=== PATIENT | male | born 1980 | race African-American/Black ===

== ENCOUNTER 2016-12-04 20:19 | Emergency (ER) | payer BC ==
--- NOTE | 2016-12-04 20:44 | UC ---
HPI Febrile Illness - HPI Summary HPI Summary: 36 YEAR OLD MALE PRESENTS WITH SEVERE CRAMPING. I AM VERY CONCERNED ABOUT RHABDO AND WILL SEND HIM TO THE ER. - History of Current Complaint Chief Complaint: UCGeneralIllness Time Seen by Provider: 12/04/16 20:38 Hx Obtained From: Patient Timing: Constant Initial Severity: Moderate Current Severity: Moderate Pain Scale Used: 0-10 Numeric - 5 Aggravating Factors: Nothing Alleviating Factors: Nothing Associated Signs and Symptoms: Negative - Risk Factors Pseudomonas Risk Factors: Negative - Allergy/Home Medications Allergies/Adverse Reactions: Allergies Allergy/AdvReac Type Severity Reaction Status Date / Time No Known Allergies Allergy Verified 12/04/16 21:43 PMH/Surg Hx/FS Hx/Imm Hx Endocrine/Hematology History: Denies: Hx Diabetes, Hx Thyroid Disease Cardiovascular History: Reports: Hx Hypertension - TAKES MEDICATION Denies: Hx Hypercholesterolemia, Hx Pacemaker/ICD, Hx Peripheral Vascular Disease Respiratory History: Denies: Hx Asthma, Hx Chronic Obstructive Pulmonary Disease (COPD) GI History: Denies: Hx Ulcer Musculoskeletal History: Denies: Hx Arthritis, Hx Rheumatoid Arthritis, Hx Osteoporosis Sensory History: Denies: Hx Cataracts, Hx Contacts or Glasses, Hx Glaucoma, Hx Hearing Aid Opthamlomology History: Denies: Hx Cataracts, Hx Contacts or Glasses, Hx Glaucoma Neurological History: Denies: Hx Headaches, Hx Seizures, Hx Transient Ischemic Attacks (TIA) Psychiatric History: Denies: Hx Anxiety, Hx Depression, Hx Panic Disorder - Surgical History Surgery Procedure, Year, and Place: R ankle operation 1999. Gout Infectious Disease History: No Infectious Disease History: Denies: Hx Hepatitis, Hx Human Immunodeficiency Virus (HIV), History Other Infectious Disease, Traveled Outside the [place] in Last 30 Days - Social History Alcohol Use: None Substance Use Type: Reports: None Smoking Status (MU): Never Smoked Tobacco Review of Systems Constitutional: Negative Skin: Negative Eyes: Negative ENT: Negative Respiratory: Negative Cardiovascular: Negative Gastrointestinal: Negative Genitourinary: Negative Motor: Negative Neurovascular: Negative Musculoskeletal: Myalgia, Other: - MUSCLE CRAMPS Neurological: Negative Psychological: Negative All Other Systems Reviewed And Are Negative: Yes Physical Exam Triage Information Reviewed: Yes Appearance: Well-Appearing Vital Signs: Initial Vital Signs Temp 36.9 C 12/04/16 20:25 Pulse 110 12/04/16 20:25 Resp 18 12/04/16 20:25 BP 128/86 12/04/16 20:25 Pulse Ox 98 12/04/16 20:25 Eye Exam: Normal ENT Exam: Normal Dental Exam: Normal Neck exam: Normal Neck: Positive: 1 Respiratory Exam: Normal Cardiovascular Exam: Normal Abdominal Exam: Normal Neurological Exam: Normal Psychological Exam: Normal Skin Exam: Normal Course/Dx - Diagnoses Clinic Provider Diagnoses: MUSCLE CRAMPING. FATIGUE. CRAMPING Discharge - Discharge Plan Condition: Stable Disposition: HOME Patient Education Materials: Leg Cramps (ED) Referrals: No Primary Care Phys,NOPCP [Medical Doctor] - Additional Instructions: PLEASE GO TO THE ER TO RULE OUT RHABDO.
[2016-12-04 20:48] VITALS: BP 128/86
== END 2016-12-04 21:09 | disposition home or self-care (01) ==
LOC: UCEAST 20:19
DX: R25.2 Cramp and spasm (principal); R53.83 Other fatigue; I10 Essential (primary) hypertension
CPT/HCPCS: 99211; G0463

== ENCOUNTER 2016-12-04 21:19 | Emergency (ER) | payer BC ==
[2016-12-04 22:32] LABS: Hematocrit 51 % (42-52); Hemoglobin 17.1 g/dl (14.0-18.0); Mean Corpuscular HGB Conc 34 g/dl (31-36); Mean Corpuscular Hemoglobin 28 pg (27-31); Mean Corpuscular Volume 83 fL (80-94); Mean Platelet Volume 7 um3 (7.4-10.4); Red Blood Count 6.06 10^6/ul (4.0-5.4); Red Cell Distribution Width 14 % (10.5-15); White Blood Count 8.4 10^3/ul (3.5-10.8)
[2016-12-04 23:00] LABS: Troponin I 0.02 ng/mL (<0.04)
[2016-12-04 23:02] LABS: Albumin 5.4 g/dL (3.2-5.2); BUN/Creatinine Ratio 17.9 (8-20); Calcium 10.9 mg/dL (8.6-10.3); EGFR African American 59.4 (>60); EGFR Non-African American 46.2 (>60); Potassium 4.2 mmol/L (3.5-5.0); Total Bilirubin 0.7 mg/dL (0.2-1.0); Total Protein 8.4 g/dL (6.4-8.9)
[2016-12-04 23:20] VITALS: BP 122/81
== END 2016-12-04 23:27 | disposition left against medical advice (07) ==
LOC: ED 21:19
DX: R25.2 Cramp and spasm (principal); Z53.21 Procedure and treatment not carried out due to patient leaving prior to being seen by health care provider
CPT/HCPCS: 36415; 80053; 83690; 84484; 85025; 85610; 85730

== ENCOUNTER 2018-06-02 01:48 | Observation (INO) | payer BC ==
--- NOTE | 2018-06-02 02:26 | ED ---
HPI Chest Pain - HPI Summary HPI Summary: This patient is a 37 year old M presenting to [facility] with a chief complaint of intermittent chest tightness since the 15:00 on 05/31/18 after climbing a hill and many stairs. It subsided after a few minutes. 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 The patient rates the pain 4/10 in severity. Patient reports feeling this chest tightness when he is sick, but he is not currently sick. - History of Current Complaint Chief Complaint: EDChestPainROMI Hx Obtained From: Patient Onset/Duration: Started Days Ago Timing: Intermittent Initial Severity: Moderate Current Severity: None Pain Intensity: 4 Pain Scale Used: 0-10 Numeric Character: Tightness Associated Signs and Symptoms: Positive: Chest Pain - Allergy/Home Medications Allergies/Adverse Reactions: Allergies Allergy/AdvReac Type Severity Reaction Status Date / Time No Known Allergies Allergy Verified 06/02/18 01:59 Home Medications: Home Medications Olmesartan (NF) 20 mg PO DAILY 06/02/18 [History Confirmed 06/02/18] PMH/Surg Hx/FS Hx/Imm Hx Endocrine/Hematology History: Denies: Hx Diabetes, Hx Thyroid Disease Cardiovascular History: Reports: Hx Hypertension - TAKES MEDICATION Denies: Hx Hypercholesterolemia, Hx Pacemaker/ICD, Hx Peripheral Vascular Disease Respiratory History: Denies: Hx Asthma, Hx Chronic Obstructive Pulmonary Disease (COPD) GI History: Denies: Hx Ulcer Musculoskeletal History: Denies: Hx Arthritis, Hx Rheumatoid Arthritis, Hx Osteoporosis Sensory History: Denies: Hx Cataracts, Hx Contacts or Glasses, Hx Glaucoma, Hx Hearing Aid Opthamlomology History: Denies: Hx Cataracts, Hx Contacts or Glasses, Hx Glaucoma Neurological History: Denies: Hx Headaches, Hx Seizures, Hx Transient Ischemic Attacks (TIA) Psychiatric History: Denies: Hx Anxiety, Hx Depression, Hx Panic Disorder - Surgical History Surgery Procedure, Year, and Place: R ankle operation 1999 Infectious Disease History: No Infectious Disease History: Denies: Hx Hepatitis, Hx Human Immunodeficiency Virus (HIV), History Other Infectious Disease, Traveled Outside the [place] in Last 30 Days - Family History Known Family History: Positive: Unknown - Patient was adopted - Social History Alcohol Use: None Substance Use Type: Reports: None Smoking Status (MU): Never Smoked Tobacco Review of Systems Negative: Fever Positive: Chest Pain - tightness All Other Systems Reviewed And Are Negative: Yes Physical Exam - Summary Physical Exam Summary: Appearance: Well-appearing, Well-nourished, lying in bed comfortably Skin: Warm, dry, no obvious rash Eyes: sclera anicteric, no conjunctival pallor ENT: mucous membranes moist, pharynx appears normal Neck: Supple, nontender Respiratory: Clear to auscultation, no signs of respiratory distress Cardiovascular: Normal S1, S2. No murmurs. Normal distal pulses in tibial and radial bilaterally. Abdomen: Soft, nontender, normal active bowel sounds present Musculoskeletal: Normal, Strength/ROM Intact Neurological: A&Ox3, awake and alert, mentation is normal, speech is fluent and appropriate Psychiatric: affect is normal, does not appear anxious or depressed Triage Information Reviewed: Yes Vital Signs On Initial Exam: Initial Vitals Temp Pulse Resp BP Pulse Ox 97.5 F 73 18 186/125 97 06/02/18 01:58 06/02/18 01:58 06/02/18 01:58 06/02/18 01:58 06/02/18 01:58 Vital Signs Reviewed: Yes Diagnostics - Vital Signs Vital Signs Temp Pulse Resp BP Pulse Ox 06/02/18 02:02 67 14 197/118 98 06/02/18 02:00 71 19 98 06/02/18 01:58 97.5 F 73 18 186/125 97 - Laboratory Result Diagrams: 06/02/18 12:10 06/02/18 11:42 Lab Statement: Any lab studies that have been ordered have been reviewed, and results considered in the medical decision making process. - Radiology Chest X-Ray Radiology Interpretation Completed By: ED Physician Summary of Radiographic Findings: 03:25. No acute process. Pending official report. - EKG 02:18 Cardiac Rate: NL - 70 BPM EKG Rhythm: Sinus Rhythm Summary of EKG Findings: Normal Chest Pain Course/Dx - Course Course Of Treatment: This patient is a 37 year old M presenting to [facility] with a chief complaint of intermittent chest tightness since the 15:00 on 05/31/18 after climbing a hill and many stairs. The EKG and chest x-ray were unremarkable. I spoke with Dr. Worley, hospitalist, who has agreed to admit the patient with a dx of chest pain and hypertensive urgency. - Diagnoses Provider Diagnoses: Chest pain, Hypertensive urgency - Provider Notifications Discussed Care Of Patient With: Linda Worley - Hospitalist Time Discussed With Above Provider: 05:00 Instructed by Provider To: Admit As Inpatient - Critical Care Time Critical Care Time: 30-74 min - Hypertensive urgency in the setting of ACS requiring IV anti hypertensive treatment Discharge - Sign-Out/Discharge Documenting (check all that apply): Patient Departure - Admit Patient Received Moderate/Deep Sedation with Procedure: No - Discharge Plan Condition: Good Disposition: ADMITTED TO [facility] - Billing Disposition and Condition Condition: GOOD Disposition: Admitted to [facility] - Attestation Statements Document Initiated by Angelicae: Yes Documenting Scribe: Omar Huynh Provider For Whom Kenrick is Documenting (Include Credential): Yobany Milligan MD Scribsophia Attestation: Omar Jaime, scribed for Yobany Milligan MD on 06/03/18 at 0449. Scribe Documentation Reviewed: Yes Provider Attestation: The documentation as recorded by the Omar melgar accurately reflects the service I personally performed and the decisions made by , Yobany Milligan MD Status of Scribe Document: Viewed
[2018-06-02] MEDS ORDERED: Aspirin 81 mg CHEW TAB* 81 MG TAB.CHEW PO ONE (02:34)
[2018-06-02] MEDS ORDERED: Labetalol IV* 5 MG/ML 20 ML VIAL IV PUSH ONE (02:34)
[2018-06-02] MEDS ORDERED: hydrALAZINE IV* 20 MG/ML VIAL IV SLOW PU ONE (02:42)
[2018-06-02 02:54] LABS: ABS Basophils 0.1 10^3/ul (0-0.2); ABS Eosinophils 0.1 10^3/ul (0-0.6); ABS Lymphocytes 1.9 10^3/ul (1.0-4.8); ABS Monocytes 0.5 10^3/ul (0-0.8); ABS Neutrophils 2.3 10^3/ul (1.5-7.7); ABS Nucleated RBC 0 10^3/ul; Eosinophil % 2.6 %; Hematocrit 46 % (42-52); Hemoglobin 15.7 g/dl (14.0-18.0); Lymphocyte % 39.2 %; Mean Corpuscular HGB Conc 34 g/dl (31-36); Mean Corpuscular Hemoglobin 29 pg (27-31); Mean Corpuscular Volume 84 fL (80-94); Mean Platelet Volume 7.1 fL (7.4-10.4); Nucleated Red Blood Cells % 0.1; Platelet Count 266 10^3/ul (150-450); Red Blood Count 5.47 10^6/ul (4.00-5.40); Red Cell Distribution Width 13 % (10.5-15)
[2018-06-02 03:08] LABS: Albumin 4.7 g/dL (3.2-5.2); Albumin/Globulin Ratio 1.9 (1-3); BUN/Creatinine Ratio 15.9 (8-20); EGFR African American 87.9 (>60); EGFR Non-African American 72.6 (>60); Globulin 2.5 g/dL (2-4); Potassium 3.7 mmol/L (3.5-5.0); Total Bilirubin 0.4 mg/dL (0.2-1.0); Total Protein 7.2 g/dL (6.4-8.9)
[2018-06-02 03:16] LABS: Troponin I 0.07 ng/mL (<0.04)
[2018-06-02] MEDS ORDERED: hydrALAZINE IV* 20 MG/ML VIAL IV SLOW PU PRN (05:26)
[2018-06-02] MEDS: Losartan TAB* 25 MG PO SCH ×3 (06:12→08:00)
[2018-06-02 09:13] LABS: CKMB ng/mL 4.5 ng/mL (0.6-6.3)
--- NOTE | 2018-06-02 09:41 | ECHO ---
Patient: LLOYD BRUNNER [facility] Rec#: [id number] : 1980 Date: 06/02/2018 Age: 37y Height: 178 cm / 70.1 in Weight: 117 kg / 257.9 lbs Sex: M BSA: 2.33 Room#: [facility] Admit Date#: 06/02/2018 Type: Inpatient Referring: Nisha Steiner MD Reading: Jose Zuleta MD Butadiene Convertor Operator: Inna Ware RDCS,RDMS CC: Gato Vanegas MD Transthoracic Echocardiogram Indication: CP BP: 151/115 HR: 66 Rhythm: NSR Findings History: HTN Technical Comments: The study quality is good. Left Ventricle: The left ventricular chamber size is normal. Mild concentric left ventricular hypertrophy is observed. Basal interventricular septum shows moderate thickening. The estimated ejection fraction is 55-60%. There is an E to A reversal in the mitral valve flow pattern suggestive of diastolic dysfunction. Left Atrium: The left atrium is mildly dilated. Right Ventricle: The right ventricular chamber size and systolic function are within normal limits. Right Atrium: The right atrial cavity size is normal. Aortic Valve: The aortic valve is trileaflet. Systolic excursion of the aortic valve is normal. There is a trace of aortic regurgitation. There is no evidence of aortic stenosis. Mitral Valve: The mitral valve leaflets appear normal. There is a trace of mitral regurgitation. There is no evidence of mitral stenosis. Tricuspid Valve: The tricuspid valve leaflets are normal. There is trace tricuspid regurgitation. Unable to estimate the right ventricular systolic pressure. Pulmonic Valve: The pulmonic valve appears normal. There is a trace pulmonic regurgitation. Pericardium: There is no significant pericardial effusion. Aorta: The aortic root appears normal. There is no dilatation of the aortic arch. Pulmonary Artery: The main pulmonary artery appears normal. Venous: The inferior vena cava is not visualized. Summary: There was not any prior study for comparison. Conclusions The left ventricular chamber size is normal. Mild concentric left ventricular hypertrophy is observed. The estimated ejection fraction is 55-60%. There is an E to A reversal in the mitral valve flow pattern suggestive of diastolic dysfunction. The left atrium is mildly dilated. There is a trace of aortic regurgitation. There is a trace of mitral regurgitation. There is trace tricuspid regurgitation. There is a trace pulmonic regurgitation. Measurements Name Value Normal Range RVIDd (AP) 2D 3.6 cm (0.9 - 2.6) RVDdMajor (2D) 3.2 cm (2.2 - 4.4) RAd ISD 4CH 4.1 cm (3.4 - 4.9) RA (A4C)W 3.6 cm (2.9 - 4.6) IVSd (2D) 1.5 cm (0.6 - 1) LVPWd (2D) 1.1 cm (0.6 - 1) LVIDd (2D) 4.3 cm (3.6 - 5.4) LVIDs (2D) 2.9 cm - LV FS (2D) 32 % (25 - 45) Aortic Annulus 2.5 cm (1.4 - 2.6) Ao root diameter (2D) 3.5 cm (2.1 - 3.5) Ascending Ao 3.4 cm (2.1 - 3.4) Aortic arch 3.3 cm (1.8 - 3.4) LA dimension (AP) 2D 5.1 cm (2.3 - 3.8) LAd ISD 4CH 5.6 cm (2.9 - 5.3) LA ISD 4CH W 4.5 cm (2.5 - 4.5) Name Value Normal Range LA ESV BP (A/L) index 31 ml/m2 - Name Value Normal Range MV E-wave Vmax 0.5 m/sec - MV deceleration time 164 msec - MV A-wave Vmax 0.6 m/sec - MV E:A ratio 0.8 ratio - LV septal e' Vmax 0.06 m/sec - LV lateral e' Vmax 0.06 m/sec - LV E:e' septal ratio 9 ratio - LV E:e' lateral ratio 9 ratio - Name Value Normal Range AV Vmax 1 m/sec - AV VTI 21 cm - AV peak gradient 4 mmHg - AV mean gradient 2 mmHg - LVOT Vmax 0.9 m/sec - LVOT VTI 19 cm - LVOT peak gradient 3.2 mmHg - LVOT mean gradient 2 mmHg - YOKASTA Vmax 0.7 m/sec - Name Value Normal Range RAP 8 mmHg - Name Value Normal Range PV Vmax 0.7 m/sec - PV peak gradient 2 mmHg -
--- NOTE | 2018-06-02 10:44 | HP ---
HISTORY AND PHYSICAL: DATE OF ADMISSION: 06/02/18 CHIEF COMPLAINT: Chest pain. PRIMARY CARE PROVIDER: Gato Vanegas MD. VEGETABLE THINNER: Jordyn Herrera, his . CODE STATUS: Full. SOURCE OF INFORMATION: History is obtained from review of medical charts and patient, who is an excellent historian. HISTORY OF PRESENT ILLNESS: This is a 37-year-old man with past medical history of hypertension and BMI of 35 who presented to the emergency room with complaint of chest pain over the course of 48 hours. Patient reports intermittent chest tightness described as "I felt as if the weight of my body was standing on my chest." That began at 3 p.m. on 05/31/18. It started when he was heading into work and climbing stairs and reports at the top of the stairs he had a sensation of intense chest pressure. This pressure did not radiate. He had no sweating, no nausea or diaphoresis associated with it. He was able to rest for several minutes and the chest pain subsided and he went about his day. On 06/01/18, the patient again had a brief sensation of chest tightness. This again was at a time where he was exerting himself. It passed on its own after a couple of minutes, although this morning 06/02/18, this sensation of chest tightness awoke him from sleep and he decided to present to the emergency room. He has had this sensation of chest tightness, not as intense, before during episodes of upper respiratory infections, though he has no other symptoms of upper respiratory infection at this time. He denies any palpitation. Denies progressive dyspnea on exertion or orthopnea. No other fatigue or malaise. No nausea and no edema. Of note, patient has a history of poorly controlled blood pressure. He used to be on 2 h.s. blood pressure regimen, although was lowered to 1-agent blood pressure regimen several months ago. He self-discontinued his blood pressure medication in January, although resumed it when his blood pressure became out of control. He has been tested for sleep apnea and he denies that he has it. Emergency room course, patient arrived with vital signs of blood pressure 186/125, heart rate 73, temperature 97.5, satting 97% on room air. EKG was done that showed normal sinus rhythm. Patient had chest x-ray that showed no active cardio-pulmonary disease. Labs were done which showed unremarkable CBC, negative D-dimer, BMP that was normal, and troponin that was elevated at 0.07. The hospitalist team is asked to evaluate this patient for rule out ACS versus hypertensive urgency. He did receive labetalol, hydralazine , and aspirin in the emergency room. PAST MEDICAL HISTORY: Significant for hypertension. PAST SURGICAL HISTORY: Tonsillectomy and reconstructive ankle surgery. FAMILY HISTORY: Unknown as patient is adopted. 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 He is a nonsmoker, a social drinker. No history of illicit substance use. He lives with his . MEDICATIONS: Olmesartan 20 mg p.o. daily. ALLERGIES: No known drug allergy. REVIEW OF SYSTEMS: Constitutional: Negative for fever, chills, or malaise. HEENT: Negative for headaches, vision changes, or dysphagia. Cardiovascular: Positive for chest pressure and tightness. Denies palpitations or orthopnea. Respiratory: Denies shortness of breath, cough, or pleuritic chest pain. GI: Denies nausea, vomiting, diarrhea, or abdominal pain. : Denies dysuria or hematuria. Musculoskeletal: Denies myalgias or arthralgias. Skin: Denies skin changes. Neuro: Denies focal weakness or numbness. Psychiatric: Denies depression or anxiety. PHYSICAL EXAMINATION General: Patient is a very pleasant well-appearing man, in no acute distress, sitting up in bed with his at his bedside. VITAL SIGNS: At time of my physical exam, patient's blood pressure is 160/90, heart rate 70, afebrile, respiratory rate 12, satting 99% on room air. HEENT: Patient is normocephalic, atraumatic with pupils equal and reactive. Sclerae anicteric. Oropharynx clear with moist mucous membranes. NECK: Supple with no cervical lymphadenopathy. RESPIRATORY: Clear to auscultation bilaterally. CARDIAC: Regular rate and rhythm with no murmurs, rubs, or gallops. ABDOMEN: Soft, nontender, nondistended. Normoactive bowel sounds with no hepatosplenomegaly. MUSCULOSKELETAL: He has full range of motion in all 4 extremities. He has no edema in bilateral lower extremities. NEURO: He is A and O x3 with no focal deficits and cranial nerves II through XII intact. SKIN: No rashes or lesions. DIAGNOSTIC STUDIES/LAB DATA: Data collected shows a CBC that has white blood cell count of 5, hemoglobin of 15.7, hematocrit of 46, platelets of 266. BMP was drawn that showed sodium of 140, potassium 3.7, chloride 105, carbon dioxide 28, BUN 18, creatinine 1.1, glucose 105, calcium 10. AST 31, ALT 37, alkaline phosphatase 68. Troponin elevated at 0.07 and D-dimer is negative. EKG showed normal sinus rhythm. Chest x-ray shows no active cardiopulmonary disease. Films and EKG are reviewed by myself. ASSESSMENT AND PLAN: This is a 37-year-old male with past medical history of hypertension who presented to the emergency room with 48 hours of intermittent chest pressure, found to have hypertensive urgency and elevated troponin, concerning for unstable angina versus hypertensive emergency. 1. Chest pain. He does have mildly elevated troponin on admission without EKG changes. As above, concerning for hypertensive emergency versus unstable angina. We will admit to tele service and trend trops q.3 hours. We will order an exercise stress test for tomorrow and consult Cardiology. Also, patient is status post aspirin and blood pressure control in the emergency room. We will hold on beta blockers given undergoing possible exercise stress test. 2. Hypertensive urgency, status post labetalol and hydralazine in the emergency room. We will start losartan at his equivalent home dose. We will order for p.r.n. hydralazine pushes for a systolic blood pressure greater than 160. Of note, patient may need additional oral agents as he required 2 in the past. 3. DVT prophylaxis. Patient is ambulatory and is low risk. 4. Diet. N.p.o. right now for possible stress test. 5. Code status is full. 6. Disposition. Stable for observation to telemetry floor with rule out chest pain. Plan of care is discussed with patient and his and they are agreeable to this plan. He will be admitted to observation to the tele floor. TIME SPENT: Thirty minutes were spent in the execution of this admission and H and P, with over half of that spent at the bedside giving direct patient care. PCP will be notified during this admission. [id number]/[facility] #: [id number] TERRENCE
[2018-06-02] MEDS: Hydrochlorothiazide TAB* 25 MG PO SCH (11:31)
[2018-06-02 11:49] LABS: HDL Cholesterol 41.6 mg/dL
[2018-06-02] MEDS ORDERED: Atorvastatin* 80 MG TAB PO ONE (11:52)
[2018-06-02] MEDS: Metoprolol Tartrate TAB* 25 MG PO SCH ×2 (12:19→17:58)
[2018-06-02] MEDS ORDERED: Heparin VIAL(*) 5000 UNITS/ML VIAL (FIVE THOUSAND) ONE ×2 (12:20→19:04)
[2018-06-02 12:22] LABS: EGFR African American 106.1 (>60); EGFR Non-African American 87.7 (>60)
[2018-06-02 12:27] LABS: Troponin I 0.27 ng/mL (<0.04)
[2018-06-02] MEDS: Heparin DRIP 25,000 UNITS(*) 25,000 UNITS/500 ML BAG IV SCH (12:31)
[2018-06-02 12:41] LABS: ABS Basophils 0 10^3/ul (0-0.2); ABS Eosinophils 0 10^3/ul (0-0.6); ABS Lymphocytes 1.4 10^3/ul (1.0-4.8); ABS Monocytes 0.3 10^3/ul (0-0.8); ABS Neutrophils 3.3 10^3/ul (1.5-7.7); ABS Nucleated RBC 0 10^3/ul; Eosinophil % 0.5 %; Hematocrit 47 % (42-52); Hemoglobin 16.3 g/dl (14.0-18.0); Lymphocyte % 27.7 %; Mean Corpuscular HGB Conc 35 g/dl (31-36); Mean Corpuscular Hemoglobin 29 pg (27-31); Mean Corpuscular Volume 83 fL (80-94); Mean Platelet Volume 7.2 fL (7.4-10.4); Nucleated Red Blood Cells % 0.3; Platelet Count 272 10^3/ul (150-450); Red Cell Distribution Width 13 % (10.5-15)
--- NOTE | 2018-06-02 13:30 | CONS ---
CONSULTATION REPORT: DATE OF CONSULT: 06/02/18 ATTENDING PHYSICIAN: Dr. Zuleta, Cardiology. REASON FOR CONSULT: Troponin elevation, hypertension. PRIMARY CARE PHYSICIAN: Dr. Vanegas with [facility]. PRIMARY ULTRASOUND SUPERVISOR: None. CHIEF COMPLAINT: Chest pain. HISTORY OF PRESENT ILLNESS: This is a pleasant 37-year-old male patient with a known medical history involving hypertension who has been on Benicar in the past since he was diagnosed at the age of 27. The patient states he was in September and shortly afterwards decided to do a trial off of hypertension medication (Benicar 20 mg a day). The patient did not monitor blood pressure during this time that he stopped Benicar. Apparently, in mid January when he [facility], he started to develop headaches which he historically would manifest with uncontrolled hypertension. He saw his PCP and restarted Benicar 20 mg a day. Blood pressure systolic in January was 180 at the PCP's office. 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 Apparently, his who is a labor and delivery nurse here at [facility] had enquired about obtaining an adequate blood pressure cuff size from the primary care provider. However, they stated that they were unable to prescribe this medical equipment. The patient saw the nurse practitioner with Dr. Vanegas last Friday and his blood pressure systolic was apparently in the 130s. There were no medication changes reported by the patient. He otherwise has been in his usual state of health. He is very active. 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 Apparently, he works out 1 to 1-1/2 hours a day doing surrogate training involving high intensity interval training in addition to lifting weights. He denies ever developing exertional chest pain or tightness, dizziness, or syncope. Apparently, this past Friday in [place], his lacrosse team was at the [facility]. He had to walk from the bottom of the hill and up 2 flights. During this time period, he did develop chest discomfort described as heaviness that started at the base of his neck and radiating down his sternum with associated dyspnea. No associated diaphoresis, palpitation, sensation of heart raising, dizziness, or syncope. Apparently, episode lasted 5 minutes and resolved. He was able to conduct his videography for the team for the next 2 hours with only slight chest discomfort reoccurring intermittently. He drove himself home and around 8:30 p.m. on Friday evening, he developed chest discomfort, this time described as tightness. The patient states he took two antacids and started to belch and pain resolved. Pain was not related to inspiration, palpation, or movement or walking. He woke up on Friday at 4 a.m. and went through his usual day at work. He states at the school he will go up a flight or two of stairs. He denies any exertional symptoms while at school. Yesterday evening, he had a 3-hour long lacrosse practice where he was warming up the goalie and shooting balls and was physically active with no complaints of chest pain. Apparently, last evening though while resting, he developed chest discomfort described as a pressure that was more intense than the former episodes. He called his who was doing an overnight shift in our Labor and Delivery Department, who recommended that he present to [facility]. Apparently en route to our hospital, symptoms resolved and then symptoms restarted. He did have chest pain when he presented to the hospital; however, after he was given labetalol therapy, pain resolved with no reoccurrence. Blood pressure in the emergency department was 187/118. He was admitted to [address] [place] [address] for hypertensive urgency. Losartan 50 mg a day was initiated in addition to hydralazine 5 mg q.6 h. The patient denies any reoccurrence of chest pain. Blood work was obtained. Troponin was elevated at 0.21, thus we were asked to see the patient in consultation. EKG revealed nonspecific ST changes in anterolateral leads. No ST segment elevation. This morning, his EKG demonstrated borderline T- wave abnormalities in V1, V3. Again, the patient has been asymptomatic since yesterday in the emergency department. Last ischemic evaluation: None. PAST MEDICAL HISTORY: Includes hypertension diagnosed at the age of 27. PAST SURGICAL HISTORY: Includes biopsy of left lower extremity in 2006 in addition to ankle surgery in 1999. HOME MEDICATIONS: Include: 1. Benicar 20 mg a day. 2. He was on HCTZ in 2017 and his blood pressure at that time was controlled based on review of an urgent care visit, it was 128/86; however, the patient stopped HCTZ therapy due to increased urination. ALLERGIES: No known drug allergies. FAMILY HISTORY: Unknown. The patient is adopted. SOCIAL HISTORY: The patient is . 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 He never smoked tobacco products. Denies consuming alcohol products. He denies illegal drug use. He is very active. He exercises 1 to 1.5 hours a day, doing high- intensity interval training in addition to working out with his lacrosse team. REVIEW OF SYSTEMS: All systems have been reviewed and otherwise negative except as mentioned in the HPI. PHYSICAL EXAM: Temperature is 97.9, pulse 62, respirations 16, oxygenation 100 % on room air, and blood pressure 151/115. General: The patient is alert and oriented upon entering the room, resting in bed comfortably, offers no complaints. Just came back from getting his echocardiogram completed. HEENT: Head is atraumatic and normocephalic. Oral mucosa is moist, tongue is midline. Neck: Supple. Trachea midline. No JVD, no carotid bruits. Cardiac: Normal S1 and S2. Regular rate and rhythm. No murmur, rub, or gallop noted. Lungs are auscultated posteriorly. No evidence of adventitious breath sounds. Respirations nonlabored at the rate of 16. /GI: Abdomen is protuberant and nontender. Normoactive bowel sounds x4. Extremities: No pedal edema, no clubbing, no cyanosis. Peripheral Vascular: 2+ brachial and dorsalis pedis pulse palpated bilaterally and symmetrically. Skin: Intact. No evidence of jaundice, rashes, or ecchymosis. DIAGNOSTIC STUDIES/LAB DATA: Blood Work: White count 5, hemoglobin 15.7, hematocrit 46, platelets 266, D-dimer less than 200. Sodium 140, potassium 3.7 , chloride 105, carbon dioxide 28, BUN 18, creatinine 1.1, glucose 105, troponin 0.25 at 0800. CK-MB 4.5, total CK 304. Echocardiogram 06/02/18 demonstrated LVEF of 55% to 60%. Mild LVH with moderate thickening involving the basal intraventricular septum. There is an E/A reversal in the mitral valve flow pattern suggestive of diastolic dysfunction. Mild dilatation involving the right atrium. Trace aortic insufficiency. No aortic stenosis. Trace mitral regurgitation. Trace tricuspid regurgitation. Aortic root 3.5 cm , ascending aorta 3.4 cm. Chest x-ray, 06/02/18, did not demonstrate active cardiopulmonary disease. EKG: As mentioned above in HPI. ASSESSMENT AND PLAN: 1. Hypertensive urgency. Blood pressure was 197/118 with associated complaints of chest pain. No reoccurrence of symptoms since the emergency department. Continue losartan 100 mg a day, HCTZ 25 mg a day, and hydralazine p.r.n. hospitalist following. 2. Troponinemia. Troponin 0.25 this morning. No reoccurrence of symptoms since the patient was in the emergency department. We will cycle enzymes until troponin peaks. We will risk stratify patient with exercise nuclear stress test , 06/03/18. The patient had nonspecific EKG changes which could be related to hypertensive urgency. 3. Diastolic dysfunction as demonstrated on today's echocardiogram. Recommend aggressive blood pressure control. The patient is compensated on physical examination. 4. Disposition. Pending course. The patient is full code. Dr. Zuleta agrees with the above assessment and plan. KAVIN FOWLER NP [id number]/[facility] #: [id number] TERRENCE
[2018-06-02] MEDS: Acetaminophen TAB* 325 MG PO PRN ×2 (13:54→22:08)
[2018-06-02] MEDS ORDERED: nitroGLYCERIN DRIP* 25,000 MCG/250 ML BTL IV SCH (14:00)
--- NOTE | 2018-06-02 14:30 | PN ---
Subjective Date of Service: 06/02/18 Interval History: HOSPITALIST PROGRESS NOTE Patient seen and examined at bedside. Care reviewed and d/w Gail Royal RN. He feels a little better today. Chest pain is resolved, complaints of mild diffuse STYLES. Family History: Unchanged from Admission Social History: Unchanged from Admission Past Medical History: Unchanged from Admission Objective Active Medications: Acetaminophen (Tylenol Tab*) 650 mg PO Q6H PRN PRN Reason: Pain or fever Last Admin: 06/02/18 13:54 Dose: 650 mg Aspirin (Aspirin Ec Tab*) 81 mg PO DAILY [facility] Atorvastatin Calcium (Lipitor*) 80 mg PO 1700 [facility] Hydralazine HCl (Apresoline Iv*) 5 mg IV SLOW PU Q6H PRN PRN Reason: SYSTOLIC BP GREATER THAN:160 Last Admin: 06/02/18 09:50 Dose: 5 mg Hydrochlorothiazide (Hydrodiuril Tab*) 25 mg PO DAILY [facility] Last Admin: 06/02/18 11:31 Dose: 25 mg Heparin Sodium/Dextrose (Heparin Drip 25,000 Units(*)) 25,000 units in 500 mls @ 0 mls/hr IV PER RATE [facility]; Protocol Last Admin: 06/02/18 12:31 Dose: 20 mls/hr Nitroglycerin/Dextrose (Nitroglycerin Drip*) 25,000 mcg in 250 mls @ 6 mls/hr IV .(Initial Rate) [facility]; Protocol Losartan Potassium (Cozaar Tab*) 100 mg PO DAILY [facility] Metoprolol Tartrate (Lopressor Tab*) 25 mg PO 1200,1700 [facility] Stop: 06/02/18 17:01 Last Admin: 06/02/18 12:19 Dose: 25 mg Vital Signs - 8 hr 06/02/18 06/02/18 06/02/18 06:32 06:46 07:36 Temperature 97.9 F 98.0 F Pulse Rate 74 62 72 Respiratory 14 16 20 Rate Blood Pressure 151/102 151/115 154/105 (mmHg) O2 Sat by Pulse 99 100 99 Oximetry 06/02/18 06/02/18 06/02/18 09:38 11:13 13:48 Temperature 97.9 F Pulse Rate 84 Respiratory 16 Rate Blood Pressure 171/114 175/109 168/109 (mmHg) O2 Sat by Pulse 100 Oximetry Oxygen Devices in Use Now: None Appearance: Young obese gentleman lying in bed in NAD. Eyes: No Scleral Icterus, PERRLA Ears/Nose/Mouth/Throat: Mucous Membranes Moist Neck: Trachea Midline Respiratory: Symmetrical Chest Expansion and Respiratory Effort, Clear to Auscultation Cardiovascular: NL Sounds; No Murmurs; No JVD, RRR Abdominal: NL Sounds; No Tenderness; No Distention Extremities: No Edema Neurological: Alert and Oriented x 3, NL Sensation, NL Muscle Strength and Tone Result Diagrams: 06/02/18 12:10 06/02/18 11:42 Assess/Plan/Problems-Billing Assessment: Mr Herrera is a 37yo M with PMH of obesity with BMI 37, HTN, who presented to ED with c/o exertional chest pain, found to have hypertensive urgency and troponin elevation with EKG changes concerning for ACS. - Patient Problems (1) Hypertensive urgency Comment: - Patient has long standing h/o HTN diagnosed at age 27. States his BP was well controlled and summer last year he weaned himself off of meds. Was seen by PCP and medications resumed - wi ll get more records from [place]. - Has received Losartan, HCTZ, Metoprolol, Hydralazine IV, but BP still uncontrolled. Dw Cardiology (Dr Zuleta) - will transfer to ICU for nitro drip. Goal BP<=140/90. (2) Elevated troponin Comment: - Had chest pain on presentation with reversible EKG changes (ST depression and T inversion V3-4, now resolved). - Chest pain free now, but troponin continues to trend up. - Stress test done at [place] in 2016 was negative. Tentative plan for stress test in AM depending on his clinical course. - Continue Aspirin, Metoprolol (hold it tonight for possible ST in AM), Atorvastatin, Heparin drip. - Echo showed EF 55-60%, no wall motion abnormalities. - Chest pain, EKG changes, mild troponinemia may be secondary to hypertensive urgency. - Continue to monitor. (3) DVT prophylaxis Comment: - Heparin drip. (4) Full code status Status and Disposition: Change to inpatient. Transfer to ICU for nitro drip.
[2018-06-02] MEDS ORDERED: nitroGLYCERIN DRIP* 25,000 MCG/250 ML BTL ONE (15:09)
[2018-06-02] MEDS ORDERED: Morphine VIAL* 4 MG/ML VIAL (1 ml vial) IV PRN (15:40)
[2018-06-02] MEDS ORDERED: oxyCODONE TAB* 5 MG TAB PO PRN (19:02)
[2018-06-02] MEDS ORDERED: Ondansetron INJ* 2 MG/ML VIAL ONE (19:28)
[2018-06-02] MEDS ORDERED: Ondansetron INJ* 2 MG/ML VIAL IV PRN (19:36)
[2018-06-02] MEDS ORDERED: diPHENhydraMINE PO* 50 MG PO PRN (22:13)
[2018-06-03] MEDS: Acetaminophen TAB* 325 MG PO PRN ×2 (07:32→16:02)
[2018-06-03 07:38] LABS: ABS Basophils 0 10^3/ul (0-0.2); ABS Eosinophils 0.1 10^3/ul (0-0.6); ABS Monocytes 0.4 10^3/ul (0-0.8); ABS Nucleated RBC 0 10^3/ul; Hematocrit 48 % (42-52); Hemoglobin 16.2 g/dl (14.0-18.0); Lymphocyte % 30.7 %; Mean Corpuscular HGB Conc 34 g/dl (31-36); Mean Corpuscular Hemoglobin 28 pg (27-31); Mean Corpuscular Volume 84 fL (80-94); Nucleated Red Blood Cells % 0.1; Platelet Count 268 10^3/ul (150-450); Red Blood Count 5.73 10^6/ul (4.00-5.40); Red Cell Distribution Width 14 % (10.5-15); White Blood Count 6.4 10^3/ul (3.5-10.8)
--- NOTE | 2018-06-03 07:54 | PN ---
Subjective Date of Service: 06/03/18 Interval History: Pt is feeling well. He developed a headache last night which is now mostly resolved after the NTG drip was stopped. He denies any CP/tightness. No SOB. He has not ambulated much to see if he develops any pain with exertion. Family History: Unchanged from Admission Social History: Unchanged from Admission Past Medical History: Unchanged from Admission Objective Active Medications: Acetaminophen (Tylenol Tab*) 650 mg PO Q6H PRN PRN Reason: Pain or fever Last Admin: 06/03/18 07:32 Dose: 650 mg Aspirin (Aspirin Ec Tab*) 81 mg PO DAILY [facility] Atorvastatin Calcium (Lipitor*) 80 mg PO 1700 [facility] Diphenhydramine HCl (Benadryl Po*) 50 mg PO BEDTIME PRN PRN Reason: INSOMNIA Hydralazine HCl (Apresoline Iv*) 5 mg IV SLOW PU Q6H PRN PRN Reason: SYSTOLIC BP GREATER THAN:160 Last Admin: 06/02/18 09:50 Dose: 5 mg Hydrochlorothiazide (Hydrodiuril Tab*) 25 mg PO DAILY [facility] Last Admin: 06/02/18 11:31 Dose: 25 mg Heparin Sodium/Dextrose (Heparin Drip 25,000 Units(*)) 25,000 units in 500 mls @ 0 mls/hr IV PER RATE [facility]; Protocol Last Admin: 06/02/18 12:31 Dose: 20 mls/hr Nitroglycerin/Dextrose (Nitroglycerin Drip*) 25,000 mcg in 250 mls @ 6 mls/hr IV .(Initial Rate) [facility]; Protocol Last Admin: 06/02/18 15:13 Dose: 6 mls/hr Losartan Potassium (Cozaar Tab*) 100 mg PO DAILY [facility] Morphine Sulfate (Morphine Vial*) 1 mg IV Q1H PRN PRN Reason: SEVERE PAIN Ondansetron HCl (Zofran Inj*) 4 mg IV Q6H PRN PRN Reason: NAUSEA Oxycodone HCl (Roxycodone Tab*) 5 mg PO Q4H PRN PRN Reason: PAIN - SEVERE Last Admin: 06/02/18 19:27 Dose: 5 mg Vital Signs - 8 hr 06/03/18 06/03/18 06/03/18 00:00 00:15 00:30 Temperature 97 F Pulse Rate 56 52 55 Respiratory 17 13 16 Rate Blood Pressure 128/79 131/68 122/78 (mmHg) O2 Sat by Pulse 97 96 95 Oximetry 06/03/18 06/03/18 06/03/18 00:45 01:00 01:01 Temperature Pulse Rate 60 69 66 Respiratory 15 18 16 Rate Blood Pressure 119/78 122/84 (mmHg) O2 Sat by Pulse 94 94 95 Oximetry 06/03/18 06/03/18 06/03/18 01:15 01:30 01:45 Temperature Pulse Rate 60 65 61 Respiratory 14 16 14 Rate Blood Pressure 116/88 123/73 138/89 (mmHg) O2 Sat by Pulse 94 97 95 Oximetry 06/03/18 06/03/18 06/03/18 02:00 03:00 04:00 Temperature Pulse Rate 57 63 55 Respiratory 17 15 19 Rate Blood Pressure 118/85 116/86 97/58 (mmHg) O2 Sat by Pulse 94 94 95 Oximetry 06/03/18 06/03/18 06/03/18 05:00 06:00 07:00 Temperature Pulse Rate 57 58 79 Respiratory 17 15 19 Rate Blood Pressure 106/66 113/77 126/84 (mmHg) O2 Sat by Pulse 95 93 97 Oximetry Oxygen Devices in Use Now: None Appearance: Young male sitting up in a chair, NAD Eyes: No Scleral Icterus Ears/Nose/Mouth/Throat: Mucous Membranes Moist Respiratory: Symmetrical Chest Expansion and Respiratory Effort, Clear to Auscultation Cardiovascular: NL Sounds; No Murmurs; No JVD, RRR, No Edema Abdominal: NL Sounds; No Tenderness; No Distention Extremities: No Clubbing, Cyanosis Skin: No Nodules or Sclerosis Neurological: Alert and Oriented x 3 Result Diagrams: 06/03/18 07:26 06/02/18 11:42 Assess/Plan/Problems-Billing Mr Herrera is a 37yo M with PMHx of obesity with BMI 37 and HTN, who presented to ED with c/o exertional chest pain, found to have hypertensive urgency and troponin elevation with EKG changes concerning for ACS. - Patient Problems (1) Elevated troponin Current Visit: Yes Status: Acute Code(s): R74.8 - ABNORMAL LEVELS OF OTHER SERUM ENZYMES SNOMED Code(s): 050350601 Comment: The patient presented because of CP/tightness and was found to have reversible EKG changes. THought to be secondary to hypertensive emergency but will pursue stress test this AM to assess for underlying CAD. Will continue ASA , lipitor and heparin drip for now. Await results of stress test but if negative may be able to go home with close follow up. (2) Hypertensive urgency Current Visit: Yes Status: Acute Code(s): I16.0 - HYPERTENSIVE URGENCY SNOMED Code(s): 768914945 Comment: The patient's BP has normalized with the readdition of HCTZ, he is off NTG drip. He will continue on this and losartan 100mg daily for now (he takes olmesartan 20mg daily which is equivalent). Will keep prn hydralazine available if his BP spikes. (3) DVT prophylaxis Current Visit: Yes Status: Acute Code(s): GCN0374 - SNOMED Code(s): 134867523 Comment: Heparin drip. (4) Full code status Current Visit: Yes Status: Acute Code(s): Z78.9 - OTHER SPECIFIED HEALTH STATUS SNOMED Code(s): 222105353 Status and Disposition: .
[2018-06-03 08:01] LABS: Blood Urea Nitrogen 17 mg/dL (6-24); CO2 Carbon Dioxide 23 mmol/L (22-32); Calcium 9.9 mg/dL (8.6-10.3); Chloride 100 mmol/L (101-111); EGFR African American 101.2 (>60); EGFR Non-African American 83.6 (>60); Glucose 107 mg/dL (70-100); Sodium 134 mmol/L (135-145)
[2018-06-03 08:32] LABS: Anion Gap 11 mmol/L (2-11)
[2018-06-03] MEDS ORDERED: Losartan TAB* 25 MG PO SCH (09:00)
[2018-06-03] MEDS ORDERED: Aspirin EC TAB* 81 MG TAB.EC PO SCH (09:00)
[2018-06-03] MEDS: Hydrochlorothiazide TAB* 25 MG PO SCH (09:07)
[2018-06-03] MEDS ORDERED: Diazepam TAB(*) 5 MG PO PRN (10:11)
[2018-06-03] MEDS ORDERED: diPHENhydraMINE PO* 25 MG PO PRN (10:11)
[2018-06-03] MEDS ORDERED: NS 0.9% 1000 ML** 1,000 ML IV SCH (10:15)
--- NOTE | 2018-06-03 10:48 | PN ---
<SamilorettaCher - Last Filed: 06/03/18 10:42> Subjective Date of Service: 06/03/18 - hypertensive urgency with transient EKG changes and troponinemia Interval History: no events last night. Patient transferred to ICU due to requiring IV NTG for hypertensive urgency. No recurrent c/o chest pain since he was in the ER. He is resting comfortably in chair with his present in room. He was offered EST with MPI versus LHC yesterday. He and his have explored both options and are interested in having LHC done at this time. 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[employer] Hydralazine HCl (Apresoline Iv*) 5 mg IV SLOW PU Q6H PRN PRN Reason: SYSTOLIC BP GREATER THAN:160 Last Admin: 06/02/18 09:50 Dose: 5 mg Hydrochlorothiazide (Hydrodiuril Tab*) 25 mg PO DAILY [facility] Last Admin: 06/03/18 09:07 Dose: 25 mg Heparin Sodium/Dextrose (Heparin Drip 25,000 Units(*)) 25,000 units in 500 mls @ 0 mls/hr IV PER RATE [facility]; Protocol Last Admin: 06/02/18 12:31 Dose: 20 mls/hr Nitroglycerin/Dextrose (Nitroglycerin Drip*) 25,000 mcg in 250 mls @ 6 mls/hr IV .(Initial Rate) [facility]; Protocol Last Admin: 06/02/18 15:13 Dose: 6 mls/hr Sodium Chloride (Ns 0.9% 1000 Ml) 1,000 mls @ 100 mls/hr IV .per rate [facility] Last Admin: 06/03/18 10:28 Dose: 100 mls/hr Losartan Potassium (Cozaar Tab*) 100 mg PO DAILY [facility] Last Admin: 06/03/18 09:07 Dose: 100 mg Morphine Sulfate (Morphine Vial*) 1 mg IV Q1H PRN PRN Reason: SEVERE PAIN Ondansetron HCl (Zofran Inj*) 4 mg IV Q6H PRN PRN Reason: NAUSEA Oxycodone HCl (Roxycodone Tab*) 5 mg PO Q4H PRN PRN Reason: PAIN - SEVERE Last Admin: 06/02/18 19:27 Dose: 5 mg Objective Vital Signs: Temp Pulse Resp BP Pulse Ox 97 F 63 20 147/110 93 06/03/18 08:00 06/03/18 10:00 06/03/18 10:00 06/03/18 10:00 06/03/18 10:00 Oxygen Devices in Use Now: None Eyes: No Scleral Icterus, PERRLA Ears/Nose/Mouth/Throat: NL Teeth, Lips, Gums, Clear Oropharnyx, Mucous Membranes Moist Neck: NL Appearance and Movements; NL JVP, Trachea Midline, No Thyroid Enlargement, Masses Respiratory: Symmetrical Chest Expansion and Respiratory Effort Cardiovascular: NL Sounds; No Murmurs; No JVD, No Edema Abdominal: NL Sounds; No Tenderness; No Distention Extremities: No Edema Neurological: Alert and Oriented x 3 Lines/Tubes/Other Access: Clean, Dry and Intact Peripheral IV Laboratory Results: 06/03/18 07:26 06/03/18 09:02 APTT 67.0 seconds (26.0-36.3) H 06/03/18 07:26 Total Bilirubin 0.40 mg/dL (0.2-1.0) 06/02/18 02:43 AST 31 U/L (13-39) 06/02/18 02:43 ALT 37 U/L (7-52) 06/02/18 02:43 Alkaline Phosphatase 68 U/L (34-104) 06/02/18 02:43 CK-MB (CK-2) 4.5 ng/mL (0.6-6.3) 06/02/18 02:43 Total Protein 7.2 g/dL (6.4-8.9) 06/02/18 02:43 Albumin 4.7 g/dL (3.2-5.2) 06/02/18 02:43 Globulin 2.5 g/dL (2-4) 06/02/18 02:43 Albumin/Globulin Ratio 1.9 (1-3) 06/02/18 02:43 Triglycerides 350 mg/dL 06/02/18 02:43 Cholesterol 240 mg/dL 06/02/18 02:43 LDL Cholesterol 128 mg/dL 06/02/18 02:43 HDL Cholesterol 41.6 mg/dL 06/02/18 02:43 06/02/18 06/02/18 06/02/18 02:43 05:35 08:06 Troponin I 0.07 H* 0.21 H* 0.25 H* 06/02/18 06/02/18 11:42 18:10 Troponin I 0.27 H* 0.22 H* Laboratory Results - last 24 hr 06/02/18 06/02/18 06/02/18 02:43 11:42 12:10 WBC 5.0 RBC 5.70 H Hgb 16.3 Hct 47 MCV 83 MCH 29 MCHC 35 RDW 13 Plt Count 272 MPV 7.2 L Neut % (Auto) 64.7 Lymph % (Auto) 27.7 [place] % (Auto) 6.1 Eos % (Auto) 0.5 Baso % (Auto) 1.0 Absolute Neuts (auto) 3.3 Absolute Lymphs (auto) 1.4 Absolute Monos (auto) 0.3 Absolute Eos (auto) 0 Absolute Basos (auto) 0 Absolute Nucleated RBC 0 Nucleated RBC % 0.3 APTT Sodium 140 Potassium 3.7 Chloride 105 Carbon Dioxide 28 Anion Gap 7 BUN 18 15 Creatinine 1.13 0.96 Est GFR ( Amer) 87.9 106.1 Est GFR (Non-Af Amer) 72.6 87.7 BUN/Creatinine Ratio 15.9 Glucose 105 H Hemoglobin A1c Calcium 10.0 Total Bilirubin 0.40 AST 31 ALT 37 Alkaline Phosphatase 68 Total Creatine Kinase 304 H CK-MB (CK-2) 4.5 Troponin I 0.07 H* 0.27 H* Total Protein 7.2 Albumin 4.7 Globulin 2.5 Albumin/Globulin Ratio 1.9 Triglycerides 350 Cholesterol 240 LDL Cholesterol 128 HDL Cholesterol 41.6 06/02/18 06/02/18 06/03/18 18:10 18:10 01:36 WBC RBC Hgb Hct MCV MCH MCHC RDW Plt Count MPV Neut % (Auto) Lymph % (Auto) [place] % (Auto) Eos % (Auto) Baso % (Auto) Absolute Neuts (auto) Absolute Lymphs (auto) Absolute Monos (auto) Absolute Eos (auto) Absolute Basos (auto) Absolute Nucleated RBC Nucleated RBC % APTT 48.1 H 53.2 H Sodium Potassium Chloride Carbon Dioxide Anion Gap BUN Creatinine Est GFR ( Amer) Est GFR (Non-Af Amer) BUN/Creatinine Ratio Glucose Hemoglobin A1c Calcium Total Bilirubin AST ALT Alkaline Phosphatase Total Creatine Kinase CK-MB (CK-2) Troponin I 0.22 H* Total Protein Albumin Globulin Albumin/Globulin Ratio Triglycerides Cholesterol LDL Cholesterol HDL Cholesterol 06/03/18 06/03/18 06/03/18 07:26 07:26 07:26 WBC 6.4 RBC 5.73 H Hgb 16.2 Hct 48 MCV 84 MCH 28 MCHC 34 RDW 14 Plt Count 268 MPV 7.0 L Neut % (Auto) 62.3 Lymph % (Auto) 30.7 [place] % (Auto) 5.5 Eos % (Auto) 1.0 Baso % (Auto) 0.5 Absolute Neuts (auto) 4.0 Absolute Lymphs (auto) 2.0 Absolute Monos (auto) 0.4 Absolute Eos (auto) 0.1 Absolute Basos (auto) 0 Absolute Nucleated RBC 0 Nucleated RBC % 0.1 APTT Sodium 134 L Potassium TNP Chloride 100 L Carbon Dioxide 23 Anion Gap 11 BUN 17 Creatinine 1.00 Est GFR ( Amer) 101.2 Est GFR (Non-Af Amer) 83.6 BUN/Creatinine Ratio 17.0 Glucose 107 H Hemoglobin A1c 5.6 Calcium 9.9 Total Bilirubin AST ALT Alkaline Phosphatase Total Creatine Kinase CK-MB (CK-2) Troponin I Total Protein Albumin Globulin Albumin/Globulin Ratio Triglycerides Cholesterol LDL Cholesterol HDL Cholesterol 06/03/18 06/03/18 07:26 09:02 WBC RBC Hgb Hct MCV MCH MCHC RDW Plt Count MPV Neut % (Auto) Lymph % (Auto) [place] % (Auto) Eos % (Auto) Baso % (Auto) Absolute Neuts (auto) Absolute Lymphs (auto) Absolute Monos (auto) Absolute Eos (auto) Absolute Basos (auto) Absolute Nucleated RBC Nucleated RBC % APTT 67.0 H Sodium Potassium 3.7 Chloride Carbon Dioxide Anion Gap BUN Creatinine Est GFR ( Amer) Est GFR (Non-Af Amer) BUN/Creatinine Ratio Glucose Hemoglobin A1c Calcium Total Bilirubin AST ALT Alkaline Phosphatase Total Creatine Kinase CK-MB (CK-2) Troponin I Total Protein Albumin Globulin Albumin/Globulin Ratio Triglycerides Cholesterol LDL Cholesterol HDL Cholesterol Diagnostic Imaging: Echo 06/02/2018 : LVEF 55-60%, diastolic dysfunction, normal wall motion. EKG Data: NSR 60's with occasional PVC. No ekg to review for today Assessment/Plan #1 Troponinemia with non specific transient TW changes in the setting of hypertensive urgency. BP has been controlled on current regimen. No recurrent chest pain since he was evaluated in the emergency room on 06/02/2018. He would like to proceed with [facility] to r/o CAD. procedure was reviewed with the patient including risk that include but are not limited to bleeding, infection, contrast induced nephropathy, CVA, TN , dissection, hematoma. He would like to proceed with C. Dr. Edvin Vargas toolmaker will obtain consent for procedure. #2 Hypertensive urgency. SBP 120's currently. Continue current regimen. He has been in NSR rates 60's. consider adding Bblocker to help with diastolic dysfunction in the future. Unclear if he has been ruled out for pheochromocytoma in the past given he was diagnosed at age 27. He does not report headaches although I know in the past ( January 2018 ) he restarted Benicar due to headaches. He should f/u with his primary doctor to discuss this given he was formally evaluated and diagnosed a decade ago. #3 Diastolic Dysfunction; BP is controlled. compensated on exam. #4 Dispositon pending course. Continue ASA for now. will re evaluate after LHC. Will follow. 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[employer] Hydralazine HCl (Apresoline Iv*) 5 mg IV SLOW PU Q6H PRN PRN Reason: SYSTOLIC BP GREATER THAN:160 Last Admin: 06/02/18 09:50 Dose: 5 mg Hydrochlorothiazide (Hydrodiuril Tab*) 25 mg PO DAILY [facility] Last Admin: 06/03/18 09:07 Dose: 25 mg Heparin Sodium/Dextrose (Heparin Drip 25,000 Units(*)) 25,000 units in 500 mls @ 0 mls/hr IV PER RATE [facility]; Protocol Last Admin: 06/03/18 11:05 Dose: 24 mls/hr Nitroglycerin/Dextrose (Nitroglycerin Drip*) 25,000 mcg in 250 mls @ 6 mls/hr IV .(Initial Rate) [facility]; Protocol Last Admin: 06/02/18 15:13 Dose: 6 mls/hr Sodium Chloride (Ns 0.9% 1000 Ml) 1,000 mls @ 100 mls/hr IV .per rate [facility] Stop: 06/03/18 19:14 Last Admin: 06/03/18 10:28 Dose: 100 mls/hr Losartan Potassium (Cozaar Tab*) 100 mg PO DAILY [facility] Last Admin: 06/03/18 09:07 Dose: 100 mg Morphine Sulfate (Morphine Vial*) 1 mg IV Q1H PRN PRN Reason: SEVERE PAIN Ondansetron HCl (Zofran Inj*) 4 mg IV Q6H PRN PRN Reason: NAUSEA Oxycodone HCl (Roxycodone Tab*) 5 mg PO Q4H PRN PRN Reason: PAIN - SEVERE Last Admin: 06/02/18 19:27 Dose: 5 mg Objective Vital Signs: Temp Pulse Resp BP Pulse Ox 97 F 69 15 133/89 93 06/03/18 08:00 06/03/18 12:00 06/03/18 15:00 06/03/18 11:00 06/03/18 12:00 Laboratory Results: 06/03/18 07:26 06/03/18 09:02 APTT 67.0 seconds (26.0-36.3) H 06/03/18 07:26 Total Bilirubin 0.40 mg/dL (0.2-1.0) 06/02/18 02:43 AST 31 U/L (13-39) 06/02/18 02:43 ALT 37 U/L (7-52) 06/02/18 02:43 Alkaline Phosphatase 68 U/L (34-104) 06/02/18 02:43 CK-MB (CK-2) 4.5 ng/mL (0.6-6.3) 06/02/18 02:43 Total Protein 7.2 g/dL (6.4-8.9) 06/02/18 02:43 Albumin 4.7 g/dL (3.2-5.2) 06/02/18 02:43 Globulin 2.5 g/dL (2-4) 06/02/18 02:43 Albumin/Globulin Ratio 1.9 (1-3) 06/02/18 02:43 Triglycerides 350 mg/dL 06/02/18 02:43 Cholesterol 240 mg/dL 06/02/18 02:43 LDL Cholesterol 128 mg/dL 06/02/18 02:43 HDL Cholesterol 41.6 mg/dL 06/02/18 02:43 06/02/18 06/02/18 06/02/18 02:43 05:35 08:06 Troponin I 0.07 H* 0.21 H* 0.25 H* 06/02/18 06/02/18 11:42 18:10 Troponin I 0.27 H* 0.22 H* Assessment/Plan Addendum; The patient was seen and examined by me pre cath, I discussed by concerns regarding troponins apd presentation and the patient was then agreeable to catheterization. Catheterization showed multi vessel disease including a tight LAD lesion and possible dissection distally. Complex multilevel occlusions in the RCA. The current plan is to transfer to a center with cardiothoracic surgery, undergo evaluation with interventional cardiology and CT sx to determine best approach: Stents (with CT backup), CABG or combination. I discussed this with the patient, his and mother. In addition to revascularization I discussed medical management including BP control, statins, diet and exercise. The patient was surprised and a bit overwhelmed, but understanding and agreeable to the above plan.
[2018-06-03] MEDS: Heparin DRIP 25,000 UNITS(*) 25,000 UNITS/500 ML BAG IV SCH (11:05)
[2018-06-03] MEDS ORDERED: Heparin(*) 1000 UNIT/ML 10 ML VIAL CATH LAB IV ONE ×2 (12:19→12:33)
[2018-06-03] MEDS ORDERED: nitroGLYCERIN DRIP* 0 MCG/0 ML BTL ONE (12:19)
[2018-06-03] MEDS ORDERED: VERAPAMIL 2.5 MG/ML 2 ML VIAL ** 5 mg/2 ml ONE ×2 (12:19→12:33)
[2018-06-03] MEDS ORDERED: Iohexol 350 (CONTRAST) 200 ML MDV IV ONE ×2 (12:20→12:34)
[2018-06-03] MEDS ORDERED: Lidocaine 1% INJ* 10 MG/ML 30 ML SDV ONE ×2 (12:20→12:34)
[2018-06-03] MEDS ORDERED: Bivalirudin(*) 250 MG VIAL ONE (12:28)
[2018-06-03] MEDS ORDERED: Magnesium Sulfate 1 GM IV* 1 GM/100 ML BAG IV ONE (12:30)
[2018-06-03] MEDS ORDERED: Midazolam* 1 MG/ML 5 ML VIAL (5 MG) ONE (12:33)
[2018-06-03] MEDS ORDERED: fentaNYL* 50 MCG/ML 2 ML VIAL (100 MCG VIAL) ONE (12:33)
[2018-06-03] MEDS ORDERED: nitroGLYCERIN DRIP* 25,000 MCG/250 ML BTL ONE (12:34)
[2018-06-03] MEDS ORDERED: Ticagrelor* 90 MG TAB PO ONE (13:21)
--- NOTE | 2018-06-03 16:38 | CATH ---
CC: Dr Merlyn MD, [facility] CARDIAC CATHETERIZATION REPORT: DATE OF PROCEDURE: 06/03/18 INDICATION FOR PROCEDURE: Asked by Dr. Cayla Walter, the primary federal district clerk on the case, on the day of catheterization to perform cardiac catheterization on this patient in light of abnormal cardiac enzymes, chest discomfort suggesting acute coronary syndrome versus hypertension-induced abnormal cardiac enzymes. PROCEDURES: Coronary arteriography, left heart catheterization, left ventriculography. CONSENT: The patient was interviewed and examined in the intensive care unit, where the risks and benefits were explained. He understood the procedure and wished to proceed. APPROACH: The right radial artery was assessed in the intensive care unit under ultrasound and found to be an acceptable size for approach, and as such, this was the approach taken. PRE-CARDIAC CATHETERIZATION LABORATORY RESULTS: Hemoglobin and hematocrit of 16.2 and 48 with a platelet count of 268,000. BUN and creatinine of 17 and 1.0. Sodium 134, potassium 3.7, chloride 100, bicarb 23. EQUIPMENT UTILIZED: 1. Right radial artery sheath, 6-[place] Glidesheath. 2. Diagnostic coronary catheter - 5-[place] TIG 4 curve catheter. 3. Guidewire utilized - a 260 length Maya curved guidewire. 4. Left heart catheterization catheter, 5-[place] TIG Performa radial catheter. 5. Closure device technique utilized - a radial band by [employer]. MEDICATIONS: Given during the procedure included 2000 bolus of heparin in addition to 1.5 mg of Versed. The patient had already received 5 mg of Valium and 25 mg of Benadryl preprocedure. The patient received a radial artery cocktail including 300 mcg of nitroglycerin and 3 mg of verapamil. DESCRIPTION OF PROCEDURE: The patient was brought to the cardiovascular laboratory, where a formal time-out was performed. He was prepped and draped in a sterile fashion. The right radial artery area was anesthetized with 1% lidocaine, and under ultrasound guidance, the right radial artery was cannulated and sheath was placed. Coronary arteriography was performed as well as left heart catheterization and left ventriculography utilizing a total of 28 cc of Omnipaque dye at a rate of 24 cc per second. At the end of the case, the films were reviewed and a consultation with interventionalist at [facility] was undertaken. I spoke personally with Dr. Sundar Hasa and he felt that attempting to perform the interventional procedure particularly to the LAD mid dissected area without operating room with standby could be problematic and did not recommend that it be performed there. He also mentioned bypass surgery as an alternative. As such, the right radial artery sheath was removed and the band was used for hemostasis. The total contrast used was 105 cc of Omnipaque dye. The radiation exposure included 5.4 minutes of fluoro time. The air kerma radiation was 2043 milligray. The DAP radiation was 12,454 microgray per meter squared. RESULTS: HEMODYNAMIC DATA: Left heart catheterization - revealed central aortic pressure of 134/91 with a mean of 111, left ventricular pressure 132 over left ventricular end- diastolic pressure of 9. LEFT VENTRICULOGRAPHY: Performed in the MARRERO projection revealing borderline hyperdynamic left ventricular systolic function with probable left ventricular hypertrophy. Overall ejection fraction estimated at 65%. CORONARY ARTERIOGRAPHY: A. Left coronary artery: 1. Left main - widely patent. 2. Left anterior descending artery - the left anterior descending artery had a proximal significant 90% obstruction, eccentric in nature, noted with diffuse disease seen around it. Of note, in the mid portion of the LAD at the takeoff of the diagonal branch was a spiral dissected area noted with narrowing that appeared as much as 75%. The rest of the LAD had no significant disease as it traversed to the apical region. The mid diagonal branch had its takeoff in the area of the dissection, appeared to have an ostial 65% to 70% stenosis noted. 3. Circumflex artery - a nondominant vessel supplying a thin first and second obtuse marginal branch with a moderate size bifurcating third obtuse marginal branch and a low lying last bifurcating obtuse marginal branch. The last obtuse marginal branch had an eccentric 80% obstruction seen in it just after a bifurcating point before it then bifurcated again. B. Right coronary artery - a dominant vessel supplying the PDA and 3 posterior left ventricular branches. There was luminal irregularity seen throughout the proximal portion with a long segment of diffuse disease in its mid segment just as it turned on to the inferior surface of the heart. Past this point was an area of stenosis that appeared to be approximately 75% to 80% eccentric in nature. OVERALL ASSESSMENT: Well-preserved left ventricular systolic function with triple vessel disease involving the proximal LAD as well as the dissected mid LAD, the last obtuse marginal branch, and the distal right coronary artery prior to the PDA. There was moderate diffuse disease throughout the mid portion of the right as well. After my discussion with Dr. Sundar Haas at [facility], who advised us not to attempt intervention without having the potential for open heart surgery on standby, he also felt an opinion from the open heart surgeons would be reasonable as well, although given the patient's age of [age] years old, this might sway the decision for therapy more toward intervention rather than open heart surgery. I discussed these results with Dr. Cayla Walter, who is the primary federal district clerk involved with the case, as well as with Dr. Britney Dewitt , the hospitalist, and recommended transfer of the patient to get opinions from the surgeons and interventionalist at a center that had the availability of open heart surgery. Our recommendations were made and the patient and family decided on [facility] since we had also already spoken with Dr. Sundar Haas regarding the case. [id number]/CPS #: [id number] MTDD
[2018-06-03] MEDS ORDERED: Atorvastatin* 80 MG TAB PO SCH (17:00)
[2018-06-03 17:51] VITALS: BP 140/96
[2018-06-03] MEDS ORDERED: Heparin VIAL(*) 5000 UNITS/ML VIAL (FIVE THOUSAND) IV ONE (18:00)
--- NOTE | 2018-06-03 20:43 | DS ---
CC: Dr. Vanegas * DISCHARGE SUMMARY: DATE OF ADMISSION: 06/02/18 DATE OF TRANSFER TO [facility]: 06/03/18 PRIMARY CARE PROVIDER: Dr. Vanegas. PRINCIPAL DIAGNOSES: 1. Hypertensive emergency. 2. Unstable angina with slightly elevated troponin and now identified triple- vessel disease. SECONDARY DIAGNOSIS: Obesity. DISCHARGE MEDICATIONS: 1. Heparin drip. 2. Aspirin 81 mg p.o. daily. 3. Lipitor 80 mg p.o. nightly. 4. Hydralazine 5 mg IV q.6 hours p.r.n. systolic blood pressure greater than 160. 5. Hydrochlorothiazide 25 mg p.o. daily. 6. Losartan 100 mg p.o. daily. 7. Morphine sulfate 1 mg IV q.1 hour p.r.n. pain. 8. Oxycodone 5 mg p.o. q.4 hours p.r.n. pain. 9. Normal saline at 100 mL per hour to complete 9 hours post cath. HOSPITAL COURSE: Mr. Herrera is a 37-year-old male with a longstanding history of hypertension, diagnosed at the age of 27, who was taken off one of his blood pressure medications in the not so distant past, who presents to the emergency room for chest pain. He states that the chest pain initially was exertional, but then occurred while sleeping. The patient was found to have a very mildly elevated troponin of 0.07. He was markedly hypertensive with systolics in the 180s to 190s. The patient was admitted for hypertensive emergency and possible unstable angina. His blood pressure came under control with the re-addition of hydrochlorothiazide in addition to the ARB equivalent to what he was taking at home. He was also placed on a nitroglycerin infusion temporarily, though this was discontinued at approximately 10 p.m. on the night prior to transfer. The patient's blood pressures have been in the one-teens to 130s since. In terms of the elevated troponin, this peaked at 0.27. There was question if the elevated troponin was secondary to hypertensive emergency or unstable angina. Initially, the plan is to have the patient undergo stress test; however , ultimately, it was decided he would undergo left heart catheterization. This was performed by Dr. Vargas on 06/03/18. The patient was found to have a proximal LAD lesion of 90%, a dissected area of the mid LAD, OM branch of the circumflex artery with a 95% lesion and a distal RCA lesion of 80%. Because of these findings, the patient's case was reviewed with Dr. Haas at [facility]. Ultimately, the decision was made to transfer the patient to [facility] so he could be evaluated by both the edi manager there as well as Cardiothoracic Surgery to determine the best course of treatment for this patient whether be multiple stents being placed versus bypass surgery. The patient has kindly been accepted and transferred by Dr. Martinez at [facility] to the hospitalist service. At the time of transfer, the patient is chest pain free. He has no shortness of breath. He is recovering from his right wrist access. He remains on a heparin drip. Of note, the patient also underwent transthoracic echocardiogram during the hospitalization, which revealed an EF of 55% to 60% with mild concentric LVH and moderate thickening of the basal intraventricular septum. There was a reversal in the mitral valve flow pattern suggestive of diastolic dysfunction. FOLLOWUP CONCERNS: The patient is being transferred to [facility] today, 06/03/18. ACTIVITY: Per post cath instructions. CONDITION ON DISCHARGE: Stable. TIME SPENT: 45 minutes were spent discharging this patient. [id number] #: [id number] MTDD
== END 2018-06-03 18:27 | disposition short-term general hospital (02) ==
LOC: ED 01:48 → MEDTELE 05:22 → OBSVTOIN 14:24 → INTOOBSV 14:24 → ICU 14:42
PROVIDERS: ADMIT Internal Medicine; ATTEND Hospitalist
DX: I25.10 Atherosclerotic heart disease of native coronary artery without angina pectoris (principal); I16.1 Hypertensive emergency; R07.9 Chest pain, unspecified; I20.0 Unstable angina; Z79.82 Long term (current) use of aspirin; R51 Headache; R74.8 Abnormal levels of other serum enzymes; E66.9 Obesity, unspecified; Z68.37 Body mass index [BMI] 37.0-37.9, adult
CPT/HCPCS: 36415; 71046; 76937; 80048; 80053; 80061; 82550; 82553; 82565; 83036; 84484; 84520; 85025; 85347; 85379; 85730; 93005; 93306; 93458; 96372; 96374; 96375; 96376; 99285; A9270-GY; G0378; J0360; J0583; J1644; J2250; J2405; J3010; J3475

== ENCOUNTER 2018-06-26 19:12 | Emergency (ER) | payer BC ==
--- OUTSIDE RECORDS SUMMARY | 2018-06-26 19:30 | XMS REPORT | Continuity of Care Document ---
:1980 External Reference #:[id number] Author Name Vicky Moreno Care Team Providers Name Role Phone Anum Nicholas MD Primary Care Physician Unavailable Payers Date Identification Numbers Payment Provider Subscriber Policy Number: [id number] [employer] Mike Herrera PayID: [id number] [address] [address] [place] [address] Advance Directives Description No Information Available Problems Description No Information Family History Description No Information Available Social History Type Date Description Comments Sex Unknown Allergies, Adverse Reactions, Alerts Description No Information Medications Description No Information Immunizations Description No Information Available Vital Signs Description No Information Available Results Test Date Facility Test Result H/L Range Note Basic Metabolic 06/09/2018 N2N/CCD Import Sodium 139 135 - 145 mEq/L Panel Potassium 4.5 3.5 - 5.1 mEq/L Chloride 102 98 - 108 mEq/L Co2 27 20 - 31 mEq/L Anion Gap 10 4 - 16 mEq/L BUN 19 mg/dL 8 - 20 Creatinine 1 mg/dL 0.7 - 1.2 Glucose 91 mg/dL 65 - 100 Calcium 9.2 mg/dL 8.5 - 10.4 Magnesium 06/09/2018 N2N/CCD Import Magnesium 2.4 mg/dL 1.5 - 2.4 eGFR 06/09/2018 N2N/CCD Import Egfr >60 mL/min eGFR Black 06/09/2018 N2N/CCD Import Egfr Black >60 mL/min CBC 06/09/2018 N2N/CCD Import WBC 5.8 4.0 - 11.0 10 3/uL RBC 4.7 4.40 - 6.20 10 6/uL HGB 13.2 g/dL 13.0 - 18.0 HCT 40 % 40 - 52 MCV 85 fL 80 - 100 MCH 28.1 pg 26.0 - 34.0 MCHC 32.9 g/dL 32.0 - 37.5 RDW 12.1 % 0.0 - 15.2 Platelet Count 254 150 - 450 10 3/uL Poct Glucose 06/08/2018 N2N/CCD Import Glucose,Meter 99 mg/dL 65 - 100 Meter Red Cells 06/07/2018 N2N/CCD Import Unit Number [id number] Product Code [id number] Dispense Status Canceled Blood Type 5100 Product RBC LR Coding System [id number] Unit Number [id number] Product Code H2313o68 Dispense Status Canceled Blood Type 5100 Product RBC LR Coding System [id number] Unit Number [id number] Product Code T8653d53 Dispense Status Canceled Blood Type 5100 Product RBC LR-1 Coding System Iogx313 Unit Number [id number] Product Code [id number] Dispense Status Canceled Blood Type 5100 Product RBC LR Coding System [id number] Whole Blood 06/07/2018 N2N/CCD Import Potassium, Whole 3.9 3.2 - 4.7 Potassium Blood mEq/L PT/Inr 06/06/2018 N2N/CCD Import Protime 13 High 10.2 - 12.9 sec Inr 1.1 0.9 - 1.1 MRSA Surveillance 06/06/2018 N2N/CCD Import MRSA Surveillance No Oxacillin resistant Staph aureus (MRSA) isolated. Blood Bank Order to 06/05/2018 N2N/CCD Import Packed RBC Units 4 Prepare PRBC's, 4 Units Date Required, PRBC 06/05/18 BNP 06/05/2018 N2N/CCD Import BNP <2 0 - 100 pg/mL Blood Gas, 06/05/2018 N2N/CCD Import PH, Venous -Poc 7.35 7.32 - 7.42 Venous-Poc Pco2, Venous -Poc 50 40 - 52 mm Hg Po2, Venous -Poc <45 40 - 50 mm Hg Bicarbonate, Venous -Poc 27 23 - 28 mEq/L Base Excess, Venous -Poc 0.6 -2.0 - 3.0 mEq/L O2 Sat calc, Maynor-Poc NC % Oxyhemoglobin, Maynor-Poc 75.7 % Carboxyhgb, May[place]-Poc 0.9 % Methemoglobin, [place]-Poc 0.3 % Hematocrit -Poc 37 % Low 40 - 52 Hemoglobin -Poc 12.5 Low 13.0 - 18.0 gm/dL Sodium, WB -Poc 137 135 - 145 mEq/L Potassium, WB -Poc 3.8 3.2 - 4.7 mEq/L Calcium, Ionized WB-Poc 4.4 mg/dL Low 4.5 - 5.3 Chloride, WB-Poc 103 98 - 108 mEq/L Glucose, WB -Poc 112 mg/dL High 65 - 100 Blood Gas , Arterial-Poc 06/05/2018 N2N/CCD Import PH -Poc 7.37 7.36 - 7.45 Pco2 -Poc 42 35 - 45 mm Hg Po2 -Poc 93 80 - 100 mm Hg Bicarbonate -Poc 24 21 - 28 mEq/L Base Excess -Poc -1.7 -2.0 - 3.0 mEq/L O2 Sat calc, -Poc NC 95 - 99 % Oxyhemoglobin -Poc 95.8 % 95.0 - 99.0 Carboxyhemoglobin -Poc 0.6 % 0.5 - 1.5 Methemoglobin -Poc 0.3 % Low 0.4 - 1.2 Hematocrit -Poc 35 % Low 40 - 52 Hemoglobin -Poc 12 Low 13.0 - 18.0 gm/dL Sodium, WB -Poc 136 135 - 145 mEq/L Potassium, WB -Poc 4.7 3.2 - 4.7 mEq/L Calcium, Ionized WB-Poc 5.8 mg/dL High 4.5 - 5.3 Chloride, WB-Poc 107 98 - 108 mEq/L Glucose, WB -Poc 104 mg/dL High 65 - 100 Poc HMS Testing 06/05/2018 N2N/CCD Import Patient Heparin Concentration 0 mg/kg (Poc) Calculated Protamine Dose (Poc) 0 mg HR-Act (Poc) 131 seconds LDL 06/05/2018 N2N/CCD Import LDL Direct 89 mg/dL 30 - 100 PTT (Aptt) on 06/05/2018 N2N/CCD Import Aptt 30.2 25.1 - 36.5 admission sec Hematocrit 06/05/2018 N2N/CCD Import HCT 37 % Low 40 - 52 Blood Gases, 06/05/2018 N2N/CCD Import Fio2 4L Arterial Delivery Mode NC PH 7.38 7.36 - 7.45 Pco2 43 35 - 45 mm Hg Po2 182 High 80 - 100 mm Hg Bicarbonate 25 21 - 28 mEq/L Base Excess -0.4 -2.0 - 3.0 mEq/L O2 Sat.(calc) 99 % 95 - 99 Hold Lavender 06/04/2018 N2N/CCD Import Hold Lav Tube stored Differential 06/04/2018 N2N/CCD Import Differential Automated CBC And Differential 06/04/2018 N2N/CCD Import WBC 6.2 4.0 - 11.0 10 3/uL RBC 6.03 4.40 - 6.20 10 6/uL HGB 16.9 g/dL 13.0 - 18.0 HCT 50 % 40 - 52 MCV 82 fL 80 - 100 MCH 28 pg 26.0 - 34.0 MCHC 34 g/dL 32.0 - 37.5 RDW 12.2 % 0.0 - 15.2 Platelet Count 286 150 - 450 10 3/uL Neutrophils 60 % 45 - 75 Lymphocytes 31 % 15 - 45 Monocytes 7 % 0 - 15 Eosinophils 1 % 0 - 5 Basophils 1 % 0 - 3 Neutrophil # 3.7 1.8 - 8.0 10 3/uL Lymphocyte # 2 1.0 - 4.8 10 3/uL Monocyte # 0.5 0.1 - 1.0 10 3/uL Eosinophil # 0 0.0 - 0.6 10 3/uL Basophil # 0 0.0 - 0.2 10 3/uL Phosphorus 06/04/2018 N2N/CCD Import Phosphorus 5 mg/dL High 2.2 - 4.5 Lipid Panel reflex 06/04/2018 N2N/CCD Import Cholesterol 215 mg/dL High 100 - 200 to Direct LDL if trig>400 and < Triglycerides 175 mg/dL High 30 - 150 HDL Cholesterol 46 mg/dL 35 - 130 non-HDL-C 169 mg/dL High 95 - 160 Chol/HDL Ratio 4.7 LDL (calc) 134 mg/dL High 30 - 100 Hepatic function panel 06/04/2018 N2N/CCD Import Total Protein 7.4 g/dL 6.4 - 8.5 Albumin 5 g/dL High 3.2 - 4.8 Globulin 2.4 g/dL 2.4 - 4.3 A/G Ratio 2.1 High 1.1 - 1.8 Bili, Total 1.2 mg/dL 0.3 - 1.2 Bili, Direct 0.3 mg/dL 0.0 - 0.3 Bili, Indirect 0.9 mg/dL 0.1 - 1.0 Ast 36 U/L 7 - 37 Alt 48 U/L 10 - 49 Alk Phos 73 U/L 46 - 116 TSH 06/04/2018 N2N/CCD Import TSH 1.54 0.55 - 4.78 uIU/mL Hemoglobin A1c 06/04/2018 N2N/CCD Import Eaverage Glucose 117 mg/dL 68 - 126 Hemoglobin A1c 5.7 % High 4.2 - 5.6 Prealbumin 06/04/2018 N2N/CCD Import Prealbumin 35.8 mg/dL High 18.0 - 35.7 Alkaline 06/04/2018 N2N/CCD Import Alk Phos 78 U/L 46 - 116 Phosphatase (Alk Phos) LDH 06/04/2018 N2N/CCD Import LDH 206 U/L 120 - 246 Type And Screen 06/04/2018 N2N/CCD Import Abo RH O Rh Positive Antibody Screen Negative EKG 12 Lead 06/04/2018 N2N/CCD Import Ventricular Rate EKG/Min 73 BPM Atrial Rate 73 BPM pr-Interval (Msec) 176 ms QRS-Interval (Msec) 106 ms QT-Interval (Msec) 422 ms QTC 464 ms P [place] 26 degrees R [place] 52 degrees T [place] 63 degrees Diagnosis Line Normal sinus rhythm Diagnosis Line T wave abnormality, consider anterolateral ischemia Diagnosis Line See Note 1 1 Confirmed by Stormy Julian ([id number]) on 06/04/2018 4:29:24 PM Procedures Date Code Description Status 06/03/2018 48482 Left Heart Cath. Incl S/I Coronaries, Angio S/I V Gram If Completed Done 06/02/2018 66391 ECHO Transthorasic Realtime 2D W Doppler & Color Flow Hosp Completed Encounters Type Date Location Provider Dx Diagnosis Office Visit 06/03/2018 [facility] Britney Dewitt, I16.1 Hypertensive 8:52a Assoc,pc D.O. 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 at [facility]06/24/2018 1:20 pm - Anum Nicholas MD at [facility] Internal Medicine [facility]
--- OUTSIDE RECORDS SUMMARY | 2018-06-26 19:30 | XMS REPORT | Continuity of Care Document ---
:1980 External Reference #:[id number] Author Name Vicky Moreno Care Team Providers Name Role Phone Anum Nicholas MD Primary Care Physician Unavailable Payers Date Identification Numbers Payment Provider Subscriber Policy Number: [id number] BS [employer]ets Mike Herrera PayID: [id number] [address] [address] [place] [address] Advance Directives Description No Information Available Problems [...] Red Cells 06/07/2018 N2N/CCD Import Unit Number [id number] Product Code N7529i98 Dispense Status Canceled Blood Type 5100 Product RBC LR Coding System Jwkk625 Unit Number [id number] Product Code Q2669k75 Dispense Status Canceled Blood Type 5100 Product RBC LR Coding System Ystv132 Unit Number [id number] Product Code Z2992t46 Dispense Status Canceled Blood Type 5100 Product RBC LR-1 Coding System Uswq490 Unit Number [id number] Product Code P5887r09 Dispense Status Canceled Blood Type 5100 Product RBC LR Coding System [id number] Whole Blood 06/07/2018 N2N/CCD Import Potassium, Whole [...] (Msec) 422 ms QTC 464 ms P [place] 26 degrees R [place] 52 degrees T [place] 63 degrees Diagnosis Line Normal sinus rhythm Diagnosis Line T wave abnormality, consider anterolateral ischemia Diagnosis Line See Note 1 1 Confirmed by Stormy Julian ([id number]) on 06/04/2018 4:29:24 PM Procedures Date Code Description Status 06/03/2018 15715 Left Heart Cath. Incl S/I Coronaries, Angio S/I V Gram If Completed Done 06/02/2018 23458 ECHO Transthorasic Realtime 2D W Doppler & Color Flow Hosp Completed Encounters Type Date Location Provider Dx Diagnosis Office Visit 06/03/2018 [facility] Britney Dewitt, I16.1 Hypertensive 8:52a Assoc,pc D.O. 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 at [facility]06/24/2018 1:20 pm - Anum Nicholas MD at [facility] Internal Medicine [facility]
--- NOTE | 2018-06-26 20:23 | ED ---
Hypertension - HPI Summary HPI Summary: Pt is a 37 y/o male who presents to the ED c/o HTN. He was here on 06/02/18 for chest tightness and was diagnosed with hypertensive urgency. Pt then had a cardiac catheterization by Dr. Vargas and subsequently had a CABG on 06/05/18 in [place]. As per , pts BP was about 120/80 for the first two weeks after the CABG. 2 days ago they had an appointment with Dr. Rubin and his BP was then about 140/90. Dr. Rubin then increased his Lisinopril dosage from 2.5 mg to 5 mg. Pt also takes ASA, 40 mg Lipitor, and 12.5 mg Metoprolol BID. Pt reports a mild STYLES for the past two days, but denies any CP, SOB, LE edema, blurred vision , diplopia, or palpitations. He has an appointment with Dr. Walter on 06/29/18. BP while in room: 175/101. - History of Current Complaint Chief Complaint: EDHypertension Stated Complaint: HIGH BLOOD PRESSURE PER Time Seen by Provider: 06/26/18 20:18 Hx Obtained From: Patient, Family/Watch Parts Inspector - Onset/Duration: Worse Since Timing: Constant Aggravating Factor(s): Nothing Alleviating Factor(s): Nothing Associated Signs & Symptoms: Headaches - mild Related Hx: Diagnosed As: - HTN, CABG 3 weeks ago - Allergies/Home Medications Allergies/Adverse Reactions: Allergies Allergy/AdvReac Type Severity Reaction Status Date / Time No Known Allergies Allergy Verified 06/26/18 19:17 Home Medications: Home Medications Aspirin [Aspirin EC] 81 mg PO DAILY 06/26/18 [History Confirmed 06/26/18] Lisinopril TAB* [Prinivil TAB 5 MG*] 5 mg PO DAILY 06/26/18 [History Confirmed 06/26/18] oxyCODONE/Acetamin 5/325 MG* [Percocet 5/325 TAB*] 1 tab PO Q6HR PRN 06/26/18 [ History Confirmed 06/26/18] PMH/Surg Hx/FS Hx/Imm Hx Endocrine/Hematology History: Denies: Hx Diabetes, Hx Thyroid Disease Cardiovascular History: Reports: Hx Hypertension - TAKES MEDICATION Denies: Hx Hypercholesterolemia, Hx Pacemaker/ICD, Hx Peripheral Vascular Disease Respiratory History: Denies: Hx Asthma, Hx Chronic Obstructive Pulmonary Disease (COPD) GI History: Denies: Hx Ulcer Musculoskeletal History: Denies: Hx Arthritis, Hx Rheumatoid Arthritis, Hx Osteoporosis Sensory History: Denies: Hx Cataracts, Hx Contacts or Glasses, Hx Glaucoma, Hx Hearing Aid Opthamlomology History: Denies: Hx Cataracts, Hx Contacts or Glasses, Hx Glaucoma Neurological History: Denies: Hx Headaches, Hx Seizures, Hx Transient Ischemic Attacks (TIA) Psychiatric History: Denies: Hx Anxiety, Hx Depression, Hx Panic Disorder - Surgical History Surgery Procedure, Year, and Place: R ankle operation 1999 Infectious Disease History: No Infectious Disease History: Denies: Hx Hepatitis, Hx Human Immunodeficiency Virus (HIV), History Other Infectious Disease, Traveled Outside the [place] in Last 30 Days - Family History Known Family History: Positive: Unknown - Patient was adopted - Social History Alcohol Use: None Hx Substance Use: No Substance Use Type: Reports: None Hx Tobacco Use: No Smoking Status (MU): Never Smoked Tobacco Review of Systems Negative: Blurred Vision, Diplopia Negative: Palpitations, Chest Pain Negative: Shortness Of Breath Negative: Edema - LE All Other Systems Reviewed And Are Negative: Yes Physical Exam - Summary Physical Exam Summary: Appearance: well appearing, no pain distress, obese Skin: warm, dry, reflects adequate perfusion, sternotomy scar clean, dry, and intact Head/face: normal Eyes: EOMI, PIA ENT: mucous membranes moist Neck: supple, non-tender Respiratory: CTA, breath sounds present Cardiovascular: pulses symmetrical Abdomen: non-tender, soft Bowel Sounds: present Musculoskeletal: normal, strength/ROM intact Neuro: normal, sensory motor intact, A&Ox3 Triage Information Reviewed: Yes Vital Signs On Initial Exam: Initial Vitals Temp Pulse Resp BP Pulse Ox 97.5 F 71 18 153/110 97 06/26/18 19:15 06/26/18 19:15 06/26/18 19:15 06/26/18 19:15 06/26/18 19:15 Vital Signs Reviewed: Yes Diagnostics - Vital Signs Vital Signs Temp Pulse Resp BP Pulse Ox 06/26/18 19:15 97.5 F 71 18 153/110 97 - Laboratory Lab Statement: Any lab studies that have been ordered have been reviewed, and results considered in the medical decision making process. Hypertension Course/Dx - Course Course Of Treatment: Nurse's notes reviewed. Patient with history of coronary artery disease status post CABG recently who has noticed that his blood pressures been up since he came off of Percocet. He only has 5 mg of lisinopril and metoprolol. He is totally asymptomatic. He was started on Norvasc here and his who is a nurse will check his blood pressures frequently at home. 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 - Diagnoses Differential Diagnosis/HQI PQRI: Hypertension, Hypertensive Crisis, Hypertensive Urgency Provider Diagnoses: Hypertension, CAD (coronary artery disease) Discharge - Sign-Out/Discharge Documenting (check all that apply): Patient Departure - Discharge Patient Received Moderate/Deep Sedation with Procedure: No - Discharge Plan Condition: Improved Disposition: HOME Prescriptions: amLODIPine TAB* [Norvasc 5 mg TAB*] 5 mg PO DAILY #30 tab Patient Education Materials: Low-Sodium Diet (ED), Hypertension (ED) Referrals: Anum Nicholas MD [Primary Care Provider] - Additional Instructions: Low-sodium diet. Return with chest pain, difficulty breathing, worse, new symptoms or other concerns. Follow-up with Dr. Walter on Friday as scheduled. Check your blood pressure twice daily. - Billing Disposition and Condition Condition: IMPROVED Disposition: Home - Attestation Statements Document Initiated by Scribe: Yes Documenting Scribe: Michell De Oliveira Provider For Whom Kenrick is Documenting (Include Credential): Brent Duran MD Scribe Attestation: Michell Jaime, scribed for Brent Duran MD on 06/27/18 at 0033. Scribe Documentation Reviewed: Yes Provider Attestation: The documentation as recorded by the Michell melgar accurately reflects the service I personally performed and the decisions made by me, Brent Duran MD Status of Scribe Document: Viewed
[2018-06-26] MEDS ORDERED: amLODIPine TAB* 5 MG PO ONE (20:26)
[2018-06-26 21:31] VITALS: BP 164/99
== END 2018-06-26 21:20 | disposition home or self-care (01) ==
LOC: ED 19:12
DX: I25.10 Atherosclerotic heart disease of native coronary artery without angina pectoris (principal); I10 Essential (primary) hypertension; Z95.1 Presence of aortocoronary bypass graft; Z79.82 Long term (current) use of aspirin
CPT/HCPCS: 99282; A9270-GY